=== PATIENT | female | born 1955 | race Caucasian/White ===

== ENCOUNTER 2024-04-23 04:35 | Outpatient (RCR) | payer MEDICARE, MEDICAID, SELFPAY ==
[2024-04-09 10:00] VITALS: BP 120/72; PULSE 62; RESP 16; TEMP 36.6; O2SAT 97
[2024-04-09] MEDS: IRON SUCROSE COMPLEX 300 MG in Normal Saline 250 ML 176.667 MG IVPB (10:09)
[2024-04-09] MEDS: Normal Saline Flush 10 ML SYR IVP (10:10)
[2024-04-09 11:50] VITALS: BP 128/72; PULSE 62; TEMP 36.5; O2SAT 97
[2024-04-16 10:05] VITALS: BP 128/82; PULSE 72; RESP 17; O2SAT 98
[2024-04-16] MEDS: IRON SUCROSE COMPLEX 300 MG in Normal Saline 250 ML 176.667 MG IVPB (10:19)
[2024-04-16] MEDS: Normal Saline Flush 10 ML SYR IVP (10:19)
[2024-04-23] MEDS: Normal Saline Flush 10 ML SYR IVP (10:30)
[2024-04-23] MEDS: IRON SUCROSE COMPLEX 300 MG in Normal Saline 250 ML 176.667 MG IVPB (10:41)
== END 2024-05-04 23:59 | disposition home or self-care (01) ==
LOC: INF 04:35
PROVIDERS: PCP Family Medicine; Visit Provider Nurse Practitioner Family
DX: D50.9 Iron deficiency anemia, unspecified (principal)
CPT/HCPCS: 96365; 96366; J1756

== ENCOUNTER 2024-05-21 02:50 | Outpatient (RCR) | payer MEDICARE, MEDICAID, SELFPAY ==
[2024-05-05 00:03] VITALS: BP 128/82; PULSE 72; RESP 17; TEMP 36.5
[2024-05-21] MEDS: Normal Saline Flush 10 ML SYR IVP (10:34)
[2024-05-21] MEDS: IRON SUCROSE COMPLEX 300 MG in Normal Saline 250 ML 176.667 MG IVPB (10:34)
== END 2024-06-04 23:59 | disposition home or self-care (01) ==
LOC: INF 02:50
PROVIDERS: PCP Family Medicine; Visit Provider Nurse Practitioner Family
DX: D50.9 Iron deficiency anemia, unspecified (principal)
CPT/HCPCS: 96365; 96366; J1756

== ENCOUNTER 2024-07-27 09:45 | Outpatient (RCR) | payer MEDICARE, MEDICAID, SELFPAY ==
--- OUTSIDE RECORDS SUMMARY | 2024-07-13 00:12 | XMS_ITS | Encounter Summary ---
Author Organization [facility] Address [address] [place] [address] Care Team Providers Care Business Planner Name Role Phone Gus Odell MD Primary Care Provider [phone] Encounter Details Date Type Department Care Team (Late st Contact Info) Description 05/14/2024 Lab Requisition [facility] Pathology & Laboratory Medicine - [address] [address] Tom Hebert S, [place] [phone] Encounter for other general examination Social History Tobacco Use Types Packs/Day Years Used Date Smoking Tobacco: Never Assessed Interpersonal Safety Answer Date Record ed Physically Hurt Never 06/06/2020 Verbally Threaten Not on file 06/06/2020 Sex and Gender Information Value Date Recorded Sex Assigned at Not on file Gender Identity Not on file Sexual Orientation Not on file documented as of this encounter Plan of Treatment Not on file documented as of this encounter Procedures Procedure Name Priority Date/Time Associated Diagnosis Comments SURGICAL PATHOLOGY Today 05/14/2024 13 :49 EDT Encounter for other general examination documented in this encounter Results * SURGICAL PATHOLOGY (05/14/2024 13:49 EDT) Note to Patient The following pathology results have been interpreted by your pathologist and may be available to you before your health provider has had the opportunity to review them. Please allow time for your provider to receive these results and explore management options, if applicable. 05/19/2024 15:27 [facility] Final Diagnosis A. GASTROESOPHAGEAL JUNCTION, BIOPSY: - Squamous mucosa with no significant diagnostic abnormalities. B. 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 - See comment. C. COLON, SIGMOID, POLYP, BIOPSY: - Tubular adenoma. 05/19/2024 15:27 [facility] Diagnosis Comment B: RESULTS OF IMMUNOHISTOCHEMICAL STAINING: Retained expression of MLH1, PMS2, MSH2 and MSH6 INTERPRETATION: These results are indicative of normal DNA mismatch repair function within the tumor. This patient most likely does not have Velazquez syndrome. However, it is important to note that 3-10% of Velazquez syndrome patients may reveal retained expression of mismatch repair proteins due to mutation in other genes. Hence these findings should be interpreted in the context of family and clinical history. If results do not match clinicopathologic findings, molecular testing (specifically microsatellite instability by PCR) can be ordered upon obtaining preauthorization or an advanced beneficiary notice. ANTIBODY (CLONE) (BLOCK): RESULT MLH1 (M1, [place]) (block B1): Retained expression in tumor PMS2 (A16-4, [place]) (block B1): Retained expression in tumor MSH2 ([id number], [place]) (block B1): Retained expression in tumor MSH6 (SP93, [place]) (block B1): Retained expression in tumor Internal controls: Adequate NOTE: One or more of the reagents used in immunohistochemical testing in this case may not have been cleared or approved by the U.S. Food and Drug Administration (FDA). The FDA has determined that such clearance or approval is not necessary. These tests are used for clinical purposes. They should not be regarded as investigational or for research. These reagents' performance characteristics have been determined by [facility] and/or by the referring laboratory. The positive and negative controls worked appropriately. This laboratory is certified under the Clinical Laboratory Improvement Amendments of 1988 (CLIA-88) as qualified to perform high complexity clinical laboratory testing. Content Architect slides of this case were reviewed at the gastrointestinal/live r intradepartmental consultation conference. (AZS) 05/19/2024 15:27 [facility] Attestation There was significan t resident/fellow involvement in the diagnostic evaluation of this case. By the signature below, the attending physician certifies that they have personally conducted a gross and/or microscopic examination of the described specimens and rendered or confirmed the above diagnosis. 05/19/2024 15:27 T [facility] at 1527 Clinical History Anemia, EGD hiatal hernia, colo transverse colon mass 05/19/2024 15:27 T [facility] Gross Description A. Received in formalin labelled with proper patient identification (initials P, R) and GE junction biopsy is a 0.5 x 0.2 x 0.2 cm farley irregular soft tissue fragment. Entirely submitted in A1. B. Received in formalin labelled with proper patient identification (initials P, R) and transverse colon polyp are multiple farley irregular soft tissue fragments ranging from minute to 0.4 x 0.3 x 0.3 cm. Entirely submitted in B1. C. Received in formalin labelled with proper patient identification (initials P, R) and sigmoid polyp is a 0.3 x 0.3 x 0.3 cm farley irregular soft tissue fragment. Entirely submitted in C1. DARA DEXTER(ASCP) 05/15/2024 13:20 05/19/2024 15:27 T [facility] Resident/Fell ow: Alexandra Okeefe MD PhD 05/19/2024 15:27 [facility] Performing Lab [facility] 05/19/2024 15:27 [facility] Scanned Images 05/19/2024 15:27 [facility] Tissue POLYP OF COLON / Unknown 05/14/2024 13:49 EDT 05/15/2024 9:30 EDT Tissue specimen (specimen) POLYP OF COLON / Unknown 05/14/2024 13:49 EDT 05/15/2024 9:30 EDT Tissue specimen (specimen) POLYP OF COLON / Unknown 05/14/2024 13:49 EDT 05/15/2024 9:30 EDT Tom Hebert DO PATHOLOGY ORDERABL ES [facility] [address] [place] [address] documented in this encounter Visit Diagnoses Diagnosis Encounter for other general examination documented in this encounter Care Teams Business Planner Relationship Specialty Start Date End Date Gus Odell MD [address] [place] [address],[address] [place] [phone] PCP - General 09/10/15 documented as of this encounter
--- OUTSIDE RECORDS SUMMARY | 2024-07-13 00:12 | XMS_ITS | Encounter Summary ---
Author Organization [facility] Address [address] [place] [address] Care Team Providers Care Social Scientist Name Role Phone Gus Odell MD Primary Care Provider [phone] Encounter Details Date Type Department Care Team (Late st Contact Info) Description 11/18/2019 Lab Requisition [facility] Pathology & Laboratory Medicine - [address] [address] Clint Moscoso MD [address] [place] [phone] Encounter for other general examination Social History Tobacco Use Types Packs/Day Years Used Date Smoking Tobacco: Never Assessed Sex and Gender Information Value Date Recorded Sex Assigned at Not on file Gender Identity Not on file Sexual Orientation Not on file documented as of this encounter Plan of Treatment Not on file documented as of this encounter Procedures Procedure Name Priority Date/Time Associated Diagnosis Comments SURGICAL PATHOLOGY Today 11/17/2019 8:20 EST documented in this encounter Results * SURGICAL PATHOLOGY (11/17/2019 8:20 EST) Final Diagnosis A. COLON, TRANSVERSE, POLYPS, BIOPSY: - Fragments of tubulovillous adenoma(s). - Fragments of tubular adenoma(s). B. COLON, SIGMOID, POLYP, BIOPSY: - Fragments of tubular adenoma. C. RECTUM, POLYP, BIOPSY: - Fragments of tubular adenoma. 11/21/2019 12:24 EST [facility] at 1224 Clinical History History colon polyps, family history colon cancer. Hemorrhoids, diverticulosis, polyps. 11/21/2019 12:24 [facility] Attestation By the signature below, the attending physician certifies that they have personally conducted a gross and/or microscopic examination of the described specimens and rendered or confirmed the above diagnosis. 11/21/2019 12:24 [facility] at 1224 Gross Description A. Received in formalin labelled with proper patient identification (initials (P, R) and transverse colon polyp is a single farley polypoid tissue (1.1 x 0.6 x 0.5 cm). The specimen is bisected and entirely submitted in A1. Also received in the same container are 11 polypoid tissue fragments ranging from (0.1 x 0.1 x 0.1 cm to 0.3 x 0.2 x 0.1 cm). Entirely submitted in A2 through A4. B. Received in formalin labelled with proper patient identification (initials P, R) and sigmoid colon polyp are two farley-white tissues (0.2 x 0.1 x 0.1 cm and 0.4 x 0.1 x 0.1 cm). Entirely submitted in B1. C. Received in formalin labelled with proper patient identification (initials P, R) and rectal polyp are 4 farley-white tissues (0.1 x 0.1 x 0.1 cm to 0.2 x 0.2 x 0.1 cm). Entirely submitted in C1 and C2. MIHRAB ALI 11/19/2019 09:19 11/21/2019 12:24 [facility] Scanned Images 11/21/2019 12:24 [facility] Tissue SPECIMEN FROM RECTUM / Unknown 11/17/2019 8:20 EST 11/19/2019 8:38 EST Tissue specimen (specimen) SIGMOID COLON STRUCTURE / Unknown 11/17/2019 8:20 EST 11/19/2019 8:39 EST Tissue specimen (specimen) SPECIMEN FROM RECTUM / Unknown 11/17/2019 8:20 EST 11/19/2019 8:39 EST Clint Moscoso MD PATHOLOGY ORDER [facility] [address] [place] [address] documented in this encounter Visit Diagnoses Diagnosis Encounter for other general examination documented in this encounter Care Teams Social Scientist Relationship Specialty Start Date End Date Gus Odell MD [address] [place] [address],[address] [place] [phone] PCP - General 09/10/15 documented as of this encounter
--- OUTSIDE RECORDS SUMMARY | 2024-07-13 00:12 | XMS_ITS | Encounter Summary ---
Author Organization [facility] Address [address] [place] [address] Care Team Providers Care Carpenter Maintenance Name Role Phone Gus Odell MD Primary Care Provider [phone] Encounter Details Date Type Department Care Team (Late st Contact Info) Description 05/14/2024 Lab Requisition [facility] Pathology & Laboratory Medicine - [address] [address] Outr Resulting Lab, Provider Social History Tobacco Use Types Packs/Day Years [...] Procedure Name Priority Date/Time Associated Diagnosis Comments CEA Routine 05/14/2024 15:11 EDT documented in this encounter Results * CEA (05/14/2024 15:11 EDT) CEA 3.0 See Note ng/mL 05/15/2024 8:30 EDT [facility] Comment: % Distribution of CEA (ng/mL): ??0.0 - 2.5 in 98.2% of Nonsmokers and 87.3% of Smokers ??2.6 - 5 in 1.8% of Nonsmokers and 8% of Smokers ??5.1 - 10.1 in 4.7% of Smokers NOTE: Serum CEA concentration should not be interpeted as absolute evidence for the presence or absence of malignant disease. ?? Assayed on Siemens ADVIA Centaur XPT using chemiluminescent technology. ??Values obtained by different assay methods cannot be used interchangeably. Blood VENOUS BLOOD / Unknown 05/14/2024 15:11 EDT 05/14/2024 22:18 EDT Provider Outr Resulting Lab CHEMISTRY & BLOOD GAS ORDERABLES [facility] [address] [place] [address] documented in this encounter Visit Diagnoses Not on filedocumented in this encounter Care Teams Carpenter Maintenance Relationship Specialty Start Date End Date Gus Odell MD [address] [place] [address] ,[address] [place] [phone] PCP - General 09/10/15 documented as of this encounter
--- OUTSIDE RECORDS SUMMARY | 2024-07-13 00:12 | XMS_ITS | Encounter Summary ---
Author Organization [facility] Address [address] [place] [address] Care Team Providers Care Senior Lead Developer Name Role Phone Unavailable Primary Care Provider Unavailabl e Encounter Details Date Type Department Care Team (Late st Contact Info) Description 04/23/2007 Results Only [facility] [address] [place] [address] Sabino Hall, CODEY [address] [facility],[address] [place] [address] Social History Tobacco Use Types Packs/Day Years Used Date Smoking Tobacco: Never Assessed Sex and Gender Information Value Date Recorded Sex Assigned at Not on file Gender Identity Not on file Sexual Orientation Not on file documented as of this encounter Plan of Treatment Not on file documented as of this encounter Procedures Procedure Name Priority Date/Time Associated Diagnosis Comments CYTOPATHOLOGY Routine 04/23/2007 0:00 EDT documented in this encounter Results * CYTOPATHOLOGY (04/23/2007 0:00 EDT) Pathology Report: CYTOPATHOLOGY REPORT Reports generated via electronic interface contain original data; however they are lacking the format of the original report. Caution should be taken when reading/interpreti ng unformatted reports. Name: ? ROSITA IVAN ? Accession #: ? [id number] : ? 1955 (Age: 52) ??F ?Collect Date: ? 04/23/2007 Location: ? [facility] ? Receive Date: ? 04/24/2007 Provider: ?SABINO HALL NP Copy to: ? Specimen/Source: ?ThinPrep Pap Test, Vagina, processed on [email or web address] ThinPrep Imaging System, with manual evaluation Last Menstrual Period: ? 1987 Hormonal/Contracep tive Status: ? Premarin Treatment History: ? Hysterectomy: 1987 Other: ? HPVA - HPV testing requested if ASC-US on the current ThinPrep Pap test. ? SPECIMEN ADEQUACY ? Satisfactory for Evaluation - assessment of transformation zone component not applicable ( e.g. atrophy, vaginal sample, hysterectomy) GENERAL CATEGORIZATION ? Negative for Intraepithelial Lesion or Malignancy ? Document reviewed and electronically signed by: ? LEO Peña(ASCP) ? Report Date: ??04/30/2007 13:08 End of Report [facility] 04/23/2007 04/24/2007 Sabino Hall NP PATHOLOGY ORDERABLES [facility] [address] [place] [address] documented in this encounter Visit Diagnoses Not on filedocumented in this encounter
--- OUTSIDE RECORDS SUMMARY | 2024-07-13 00:12 | XMS_ITS | Encounter Summary ---
Author Organization [facility] Address [address] [place] [address] Care Team Providers Care Blasting Clay Miner Name Role Phone Gus Odell MD Primary Care Provider [phone] Encounter Details Date Type Department Care Team (Late st Contact Info) Description 11/17/2020 Lab Requisition [facility] Pathology & Laboratory Medicine - [address] [address] Clint Moscoso MD [address] [place] [phone] Encounter for other general examination Social History [...] Date/Time Associated Diagnosis Comments SURGICAL PATHOLOGY Today 11/17/2020 10 :30 EST documented in this encounter Results * SURGICAL PATHOLOGY (11/17/2020 10:30 EST) Final Diagnosis A. COLON, ASCENDING, POLYP, BIOPSY: - Tubular adenoma. B. COLON, TRANSVERSE, BIOPSY: - Tubular adenoma. C. COLON, TRANSVERSE, POLYP, BIOPSY: - Tubular adenoma. D. COLON, SIGMOID, POLYP, BIOPSY: - Tubular adenoma. 11/18/2020 15:00 [facility] Attestation By the signature below, the attending physician certifies that they have 1) personally conducted a gross and/or microscopic examination of the described specimen(s), and/or personally interpreted the results of laboratory testing of the described specimen(s), and 2) personally rendered or confirmed the above diagnosis. 11/18/2020 15:00 [facility] at 1500 Clinical History History of colon polyps; diverticulosis, colon polyps 11/18/2020 15:00 [facility] Gross Description A. Received in formalin labelled with proper patient identification (initials P, R) and ascending colon polyp are 2 fragments of farley-yellow soft tissue (each averaging 0.3 x 0.2 x 0.2 cm). The specimen is entirely submitted in A1. B. Received in formalin labelled with proper patient identification (initials P, R) and known tubulovillous adenoma at [facility] are 5 fragments of farley-yellow soft tissue (ranging from 0.2 cm to 0.3 cm in greatest dimension). The specimen is entirely submitted in B1. C. Received in formalin labelled with proper patient identification (initials P, R) and transverse colon polyp is a single fragment of farley-white soft tissue (a 0.4 x 0.2 x 0.2 cm). The specimen is entirely submitted in C1. D. Received in formalin labelled with proper patient identification (initials P, R) and sigmoid polyp is a single fragment of farley soft tissue (0.2 x 0.2 x 0.2 cm). The specimen is entirely submitted in D1. DARA BENITEZ(ASCP) 11/18/2020 8:08 11/18/2020 15:00 [facility] Performing Lab [facility] 11/18/2020 15:00 [facility] Scanned Images 11/18/2020 15:00 [facility] Tissue ENTIRE SIGMOID COLON / Unknown 11/17/2020 10:30 EST 11/17/2020 21:41 EST Tissue specimen (specimen) TRANSVERSE COLON STRUCTURE / Unknown 11/17/2020 10:30 EST 11/17/2020 21:41 EST Tissue specimen (specimen) TRANSVERSE COLON STRUCTURE / Unknown 11/17/2020 10:30 EST 11/17/2020 21:41 EST Tissue specimen (specimen) SIGMOID COLON STRUCTURE / Unknown 11/17/2020 10:30 EST 11/17/2020 21:41 EST Clint Moscoso MD PATHOLOGY ORDER [facility] [address] [place] [address] documented in this encounter Visit Diagnoses Diagnosis Encounter for other general examination documented in this encounter Care Teams Blasting Clay Miner Relationship Specialty Start Date End Date Gus Odell MD [address] [place] [address],[address] [place] [phone] PCP - General 09/10/15 documented as of this encounter
--- OUTSIDE RECORDS SUMMARY | 2024-07-13 00:12 | XMS_ITS | Clinical Summary ---
Author Organization [facility] Address [address] [place] [address] Care Team Providers Care Stem Cutter Name Role Phone Gus Odell MD Primary Care Provider [phone] Encounters Date Type Department Care Team Description 05/26/2024 Lab Requisition [facility] [address] [address] Tom Hebert DO Encounter for other general examination 05/14/2024 Lab Requisition [facility] [address] [address] Outr Resulting Lab, Provider 05/14/2024 Lab Requisition [facility] [address] [address] Tom Hebert DO Encounter for other general examination from Last 3 Months Social History Tobacco Use Types Packs/Day Years Used Date Smoking Tobacco: Never Assessed Interpersonal Safety Answer Date Record ed Physically Hurt Never 06/06/2020 Verbally Threaten Not on file 06/06/2020 Sex and Gender Information Value Date Recorded Sex Assigned at Not on file Gender Identity Not on file Sexual Orientation Not on file Plan of Treatment Health Maintenance Due Date Last Done Comments Hepatitis C Screen 1955 RSV Immunization ( o r 60+ Years) (1 - 1-dose 60+ series) 2013 Fall Risk Screening 2018 COVID-19 Vaccine (2022-24 season) 2024 Procedures Procedure Name Priority Date/Time Associated Diagnosis Comments SURGICAL PATHOLOGY Today 05/23/2024 18 :46 EDT Encounter for other general examination CEA Routine 05/14/2024 15:11 EDT SURGICAL PATHOLOGY Today 05/14/2024 13 :49 EDT Encounter for other general examination from Last 3 Months Results * SURGICAL PATHOLOGY (05/23/2024 18:46 EDT) Only the most recent of2 resultswithin the time period is included. Note to Patient The following pathology results have been interpreted by your pathologist and may be available to you before your health provider has had the opportunity to review them. Please allow time for your provider to receive these results and explore management options, if applicable. 05/30/2024 14:03 EDT [facility] Final Diagnosis A. 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 - Tumor extends into pericolonic soft tissue. - Pathologic stage (AJCC 8th ed): pT3, pN1a - All surgical margins are negative for tumor. - Metastatic carcinoma involving one of sixteen lymph nodes (11/20). - See synoptic report. 05/30/2024 14:03 EDT [facility] Diagnosis Comment Immunoperoxidase stains were performed on this case to further characterize the lesion. ANTIBODY(CLONE)(BL OCK):RESULT Keratin AE1-AE3 (AE1-AE3, [employer]) (A23): Positive in cells of interest CD68 (514H12, [employer]) (A23): Negative in cells of interest. Highlights histocytes. NOTE: One or more of the reagents used in immunoperoxidase testing in this case may not have been cleared or approved by the U.S. Food and Drug Administration (FDA). The FDA has determined that such clearance or approval is not necessary. These tests are used for clinical purposes. They should not be regarded as investigational or for research. These reagents' performance characteristics have been determined by [facility] and/or by the referring laboratory. The positive and negative controls worked appropriately. If immunoperoxidase staining has been performed on alcohol fixed cytology specimens, which has not been fully validated, the assays should be interpreted with caution and correlated with clinical data. This laboratory is certified under the Clinical Laboratory Improvement Amendments of 1988 (CLIA-88) as qualified to perform high complexity clinical laboratory testing. 05/30/2024 14:03 [facility] Attestation There was significant resident/fellow involvement in the diagnostic evaluation of this case. By the signature below, the attending physician certifies that they have personally conducted a gross and/or microscopic examination of the described specimens and rendered or confirmed the above diagnosis. 05/30/2024 14:03 [facility] at 1403 Synoptic COLON AND RECTUM: Resection COLON AND RECTUM: RESECTION - All Specimens 8th Edition - Protocol posted: 10/17/2023 SPECIMEN ?? Procedure: ?Right hemicolectomy TUMOR ?? Tumor Site: ?Ascending colon ?? Histologic Type: ?Adenocarcinoma ? Histologic Type Comment: ?Prominent mucinous features and focal signet ring features cell present. ?? Histologic Grade: ?G2, moderately differentiated ?? Tumor Size: ?Greatest dimension (Centimeters): 8.5 cm ?? Tumor Extent: ?Invades through muscularis propria into the pericolonic or perirectal tissue ?? Macroscopic Tumor Perforation: ?Cannot be determined: There is a colon detect that is uninvolved by tumor. Clinical correlation is required to determine whether this represents perforation. ? Lymphatic and / or Vascular Invasion: ?Not identified ?? Perineural Invasion: ?Not identified ?? Tumor Budding Score: ?Low (0-4) ?? Number of Tumor Buds: ?1 per 'hotspot' field ?? Treatment Effect: ?No known presurgical therapy MARGINS ?? Margin Status for Invasive Carcinoma: ?All margins negative for invasive carcinoma ? Closest Margin(s) to Invasive Carcinoma: ?Mesenteric ? Distance from Invasive Carcinoma to Closest Margin: ?Greater than 1 cm ?? Margin Status for Non-Invasive Tumor: ?All margins negative for high-grade dysplasia / intramucosal carcinoma and low-grade dysplasia REGIONAL LYMPH NODES ?? Regional Lymph Node Status: ? : ?Tumor present in regional lymph node(s) ? Number of Lymph Nodes with Tumor: ?1 ? Number of Lymph Nodes Examined: ?16 ?? Tumor Deposits: ?Not identified DISTANT METASTASIS ?? Distant Site(s) Involved: ?Cannot be determined pTNM CLASSIFICATION (AJCC 8th Edition) ?? Reporting of pT, pN, and (when applicable) pM categories is based on information available to the pathologist at the time the report is issued. As per the AJCC (Chapter 1, 8th Ed.) it is the managing physician? s responsibility to establish the final pathologic stage based upon all pertinent information, including but potentially not limited to this pathology report. ?? pT Category: ?pT3 ?? pN Category: ?pN1a ADDITIONAL FINDINGS ?? Additional Findings: ?Adenoma(s) 05/30/2024 14:03 T [facility] Clinical History Ascending colon mass 05/30/2024 14:03 [facility] Gross Description A. Received in formalin labelled with proper patient identification (initials P, R) and right colon is a segment of bowel, received closed, that includes terminal ileum (3.3 cm in length x 2.9 cm in luminal circumference), cecum and ascending colon (27.9 cm in length x ranges from 6.7 to 16.2 cm in luminal circumference), with a moderate amount of attached ragged mesentery, the mesentery overlying the tumor is dark red-brown with adhesions. Adjacent to the tumor on the mesenteric margin there is a defect (1.9 x 0.7 cm). Tumor is in proximity to the detect, but does not grossly involve. Also attached is a small amount of yellow lobulated omentum. There is a exophytic tumor in the ascending colon (8.5 x 8.2 x 3.9 cm). The serosa at the tumor is red-brown and slightly puckered. Sectioning the tumor shows it extends to muscle. The tumor is situated 13.1 cm from the proximal margin, 9.2 cm from the distal margin, 1.1 cm from the mesenteric margin and 9.1 cm from the ileocecal valve. A possible tattoo site is present. Wall thickness averages 0.3 cm adjacent to tumor site. The uninvolved colon mucosa is pink-farley with the usual folds and the average wall thickness is 0.2 cm. Two polypoid projections are seen at 5 cm and 5.4 cm from the ileocecal valve (0.2 x 0.2 x 0.2 cm and 0.3 x 0.3 x 0.2 cm) The mucosa of the terminal ileum is pink-farley and velvety with the usual folds and the average wall thickness is 0.2 cm. The serosa is pink-farley and smooth. The appendix is not present, there is a possible site prior appendectomy. Several mesenteric lymph nodes are identified (0.2 cm to 0.5 cm in greatest dimension). Beam Sealer sections are submitted as follows: INK GUZMAN Blue-serosa over the mass Black-perforation site and overlying adhesions/serosa Red-mesenteric margin overlying tumor BLOCK GUZMAN A1- section adjacent to proximal stapled margin, en face A2- business center representative section of terminal ileum A3- ileocecal valve A4- 2 polypoid projections A5- uninvolved mucosa proximal to tumor A6- A7- tumor to closest serosa A8-A9- tumor to overlying adhesions/serosa A10- tumor to overlying perforation site A11- tumor to closest mesenteric margin, perpendicular A12- A13- business center representative sections of tumor A14- uninvolved mucosa distal to tumor A15-A16- section adjacent to distal stapled margin, en face, bisected A17- 4 possible lymph nodes A18- 1 possible lymph node, bisected next A19- 4 possible lymph nodes A20- 1 possible lymph node, bisected A21- 4 possible lymph node A22- 4 possible lymph node A23- 4 possible lymph nodes A24- 1 lymph node, bisected A25- 1 lymph node, bisected A26- 1 lymph node, bisected A27- 1 lymph node, bisected ARACELI HUTCHISON MD 05/27/2024 15:30 Additional sections of tumor to mesentery (red ink/black ink) are submitted in A28- A30. Perpendicular sections to defect (opposite end inked blue) are submitted in A31-A32. ARACELI HUTCHISON MD 05/29/2024 13:10 05/30/2024 14:03 EDT [facility] Resident/Mirza w: Araceli Hutchison MD [place]com, Alayna, MD 05/30/2024 14:03 EDT [facility] Performing Lab [facility] 14:03 EDT [facility] Scanned Images 05/30/2024 14:03 EDT [facility] Tissue RIGHT COLON STRUCTURE / Unknown 05/23/2024 18:46 EDT 05/26/2024 22:19 EDT Tom Hebert DO PATHOLOGY ORDERABL ES Performing Organization Address City/[facility] Co de Phone Number [facility] [address] [place] [address] * CEA (05/14/2024 15:11 EDT) CEA 3.0 See Note ng/mL 05/15/2024 8:30 EDT [facility] Comment: % Distribution of CEA [...] Resulting Lab CHEMISTRY & BLOOD GAS ORDERABLES Performing Organization Address City/[facility]/ZIP Co de Phone Number [facility] [address] [place] [address] from Last 3 Months Care Teams Stem Cutter Relationship Specialty Start Date End Date Gus Odell MD [address] [place] [address],[address] [place] [phone] PCP - General 09/10/15
--- OUTSIDE RECORDS SUMMARY | 2024-07-13 00:12 | XMS_ITS | Referral Summary ---
Author Organization [facility] Address [address] [place] [address] Care Team Providers Care Concierge Receptionist Name Role Phone Gus Odell MD Primary Care Provider [phone] Encounters Date Type Department Care Team Description 05/26/2024 Lab Requisition [facility] [address] [address] Tom Hebert DO Encounter for other general examination 05/14/2024 Lab Requisition [facility] [address] [address] Outr Resulting Lab, Provider 05/14/2024 Lab Requisition [facility] [address] [address] Tom Hebert DO Encounter for other general [...] Orientation Not on file Plan of Treatment Not on file Procedures Procedure Name Priority Date/Time Associated Diagnosis [...] management options, if applicable. 05/30/2024 14:03 EDT [facility] Final Diagnosis A. COLON, [...] - See synoptic report. 05/30/2024 14:03 EDT [facility] Diagnosis Comment Immunoperoxidase stains [...] performance characteristics have been determined by [facility] and/or by the referring laboratory. The [...] high complexity clinical laboratory testing. 05/30/2024 14:03 [facility] Attestation There was significant resident/fellow involvement in the diagnostic evaluation of this case. By the signature below, the attending physician certifies that they have personally conducted a gross and/or microscopic examination of the described specimens and rendered or confirmed the above diagnosis. 05/30/2024 14:03 [facility] at 1403 Synoptic COLON AND [...] FINDINGS ?? Additional Findings: ?Adenoma(s) 05/30/2024 14:03 [facility] Clinical History Ascending colon mass 05/30/2024 14:03 [facility] Gross Description A. [...] cm to 0.5 cm in greatest dimension). Ribbon Cutter sections are submitted as follows: INK GUZMAN Blue-serosa over the mass Black-perforation site and overlying adhesions/serosa Red-mesenteric margin overlying tumor BLOCK GUZMAN A1- section adjacent to proximal stapled margin, en face A2- account executive sales representative section of terminal ileum A3- ileocecal valve A4- 2 polypoid projections A5- uninvolved mucosa proximal to tumor A6- A7- tumor to closest serosa A8-A9- tumor to overlying adhesions/serosa A10- tumor to overlying perforation site A11- tumor to closest mesenteric margin, perpendicular A12- A13- account executive sales representative sections of tumor A14- uninvolved mucosa [...] HUTCHISON MD 05/29/2024 13:10 05/30/2024 14:03 EDT [facility] Resident/Mirza w: Araceli Hutchison MD Westcom, Alayna, MD 05/30/2024 14:03 EDT [facility] Performing Lab [facility] 14:03 EDT [facility] Scanned Images 05/30/2024 14:03 EDT [facility] Tissue RIGHT COLON STRUCTURE / Unknown 05/23/2024 18:46 EDT 05/26/2024 22:19 EDT Tom Hebert DO PATHOLOGY ORDERABL ES Performing Organization Address [facility]/ZIP Co de Phone Number [facility] [address] [place], [place] [id number] * CEA (05/14/2024 15:11 EDT) CEA 3.0 See Note ng/mL 05/15/2024 8:30 EDT [facility] Comment: % Distribution of [...] Resulting Lab CHEMISTRY & BLOOD GAS ORDERABLES [facility] [address] [place], [place] [phone] from Last 3 Months Care Teams Concierge Receptionist Relationship Specialty Start Date End Date Gus Odell MD [address] [place] [address],[address] [place] [address] PCP - General 09/10/15
--- OUTSIDE RECORDS SUMMARY | 2024-07-13 00:12 | XMS_ITS | Encounter Summary ---
Author Organization [facility] Address [address] [place] [address] Care Team Providers Care Equipment Superintendent Name Role Phone Unavailable Primary Care Provider Unavailabl e Encounter Details Date Type Department Care Team (Latest Contact Info) Description 07/21/2004 10:45 EDT - 07/21/2004 11:59 EDT Hospital Encounter [facility] - Other [address] [place] [id number] Hari Sandoval MD Discharge Disposition: Auto Discharge Social History Tobacco Use Types Packs/Day Years Used Date Smoking Tobacco: Never Assessed Sex and Gender Information Value Date Recorded Sex Assigned at Not on file Gender Identity Not on file Sexual Orientation Not on file documented as of this encounter Discharge Disposition Disposition Code Departure Means Destination Auto Discharge documented in this encounter Plan of Treatment Not on file documented as of this encounter Procedures Procedure Name Priority Date/Time Associated Diagnosis Comments THORACOLUMBAR SPINE 1 VIEW Routine 07/21/2004 10:04 EDT L SPINE 2-3 VIEWS Routine 07/21/2004 10: 04 EDT documented in this encounter Results * THORACOLUMBAR SPINE 1 VIEW (07/21/2004 10:04 EDT) Anatomical Region Laterality Modality Other 07/21/2004 10:0 4 EDT Narrative 07/05/2009 16:29 EDT LBP. R/O DDD. LUMBAR SPINE, AP AND LATERAL FLEXION/EXTENSION; THORACOLUMBAR SPINE LATERAL: The patient is status post spinal fusion and decompression of L4-S1 with bilateral pedicle screws at L4, L5, and S1 posteriorly connected with rods. There is posterior mature bony graft and there is disc graft. There is a sub-millimeter lucency along the left-sided pedicle screw at L4. There is no comparison available. The remainder of the lumbar spine is unremarkable. Evaluation of the thoracolumbar spine demonstrates slight anterior wedging of the T11 vertebra. There is no evidence of spondylolisthesis. dw Procedure Note Collin Henry MD - 07/05/2009 LBP. R/O DDD. LUMBAR SPINE, AP AND LATERAL FLEXION/EXTENSION; THORACOLUMBAR SPINE LATERAL: The patient is status post spinal fusion and decompression of L4-S1 with bilateral pedicle screws at L4, L5, and S1 posteriorly connected with rods. There is posterior mature bony graft and there is disc graft. There is a sub-millimeter lucency along the left-sided pedicle screw at L4. There is no comparison available. The remainder of the lumbar spine is unremarkable. Evaluation of the thoracolumbar spine demonstrates slight anterior wedging of the T11 vertebra. There is no evidence of spondylolisthesis. dw Hari Sandoval MD [facility] ORDERABLES * L SPINE 2-3 VIEWS (07/21/2004 10:04 EDT) Anatomical Region Laterality Modality Other 07/21/2004 10:0 4 EDT Narrative 07/05/2009 16:29 EDT LBP. R/O DDD. Procedure Note Collin Henry MD - 07/05/2009 LBP. R/O DDD. Hari BROOKS DIAGNOSTIC IMAG ING ORDERABLES documented in this encounter Visit Diagnoses Not on filedocumented in this encounter
--- OUTSIDE RECORDS SUMMARY | 2024-07-13 00:12 | XMS_ITS | Encounter Summary ---
Author Organization [facility] Address [address] [place] [address] Care Team Providers Care Copy Center Operator Name Role Phone Gus Odell MD Primary Care Provider [phone] Encounter Details Date Type Department Care Team (Late st Contact Info) Description 05/26/2024 Lab Requisition [facility] Pathology & Laboratory Medicine - [address] [address] Tom Hebert S, [place] [address] Encounter for other general examination Social History [...] :46 EDT Encounter for other general examination documented in this encounter Results * SURGICAL PATHOLOGY (05/23/2024 18:46 EDT) Note to Patient The following pathology results have been interpreted by your pathologist and may be available to you before your health provider has had the opportunity to review them. Please allow time for your provider to receive these results and explore management options, if applicable. 05/30/2024 14:03 [facility] Final Diagnosis A. 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 - Tumor extends into pericolonic soft tissue. - Pathologic stage (AJCC 8th ed): pT3, pN1a - All surgical margins are negative for tumor. - Metastatic carcinoma involving one of sixteen lymph nodes (11/20). - See synoptic report. 05/30/2024 14:03 [facility] Diagnosis Comment Immunoperoxidase stains [...] performance characteristics have been determined by [facility] and/or by the referring laboratory. [...] high complexity clinical laboratory testing. 05/30/2024 14:03 [facility] Attestation There was significant resident/fellow involvement in the diagnostic evaluation of this case. By the signature below, the attending physician certifies that they have personally conducted a gross and/or microscopic examination of the described specimens and rendered or confirmed the above diagnosis. 05/30/2024 14:03 [facility] at 1403 Synoptic COLON [...] ?? Additional Findings: ?Adenoma(s) 05/30/2024 14:03 T [facility] Clinical History Ascending colon mass 05/30/2024 14:03 [facility] Gross Description A. Received [...] cm to 0.5 cm in greatest dimension). Warehouse Team Leader sections are submitted as follows: INK GUZMAN Blue-serosa over the mass Black-perforation site and overlying adhesions/serosa Red-mesenteric margin overlying tumor BLOCK GUZMAN A1- section adjacent to proximal stapled margin, en face A2- ambulatory services representative section of terminal ileum A3- ileocecal valve A4- 2 polypoid projections A5- uninvolved mucosa proximal to tumor A6- A7- tumor to closest serosa A8-A9- tumor to overlying adhesions/serosa A10- tumor to overlying perforation site A11- tumor to closest mesenteric margin, perpendicular A12- A13- ambulatory services representative sections of tumor A14- uninvolved mucosa [...] HUTCHISON MD 05/29/2024 13:10 05/30/2024 14:03 EDT [facility] Resident/Mirza w: Araceli Hutchison MD Westcom, Alayna, MD 05/30/2024 14:03 EDT [facility] Performing Lab [facility] 14:03 EDT [facility] Scanned Images 05/30/2024 14:03 EDT [facility] Tissue RIGHT COLON STRUCTURE / Unknown 05/23/2024 18:46 EDT 05/26/2024 22:19 EDT Tom Hebert DO PATHOLOGY ORDERABL ES [facility] [address] [place] [id number] documented in this encounter Visit Diagnoses Diagnosis Encounter for other general examination documented in this encounter Care Teams Copy Center Operator Relationship Specialty Start Date End Date Gus Odell MD [address] [place] [address],[address] [place] [address] PCP - General 09/10/15 documented as of this encounter
--- OUTSIDE RECORDS SUMMARY | 2024-07-13 00:12 | XMS_ITS | Encounter Summary ---
Author Organization [facility] Address [address] [place] [address] Care Team Providers Care Physicians And Surgeons Name Role Phone Gus Odell MD Primary Care Provider [phone] Encounter Details Date Type Department Care Team (Late st Contact Info) Description 11/10/2020 Lab Requisition [facility] Pathology & Laboratory Medicine - [address] [address] Outr Resulting Lab, Provider Social History Tobacco [...] Procedure Name Priority Date/Time Associated Diagnosis Comments DO NOT ORDER STANDALONE - [facility] COVID TEST Today 11/10/2020 11:52 EST COVID-19 TESTING Routine 11/10/2020 11:5 2 EST documented in this encounter Results * DO NOT ORDER STANDALONE - [facility]OAD COVID TEST (11/10/2020 11:52 EST) COVID-19 rt-PCR Result NEGATIVE Negative 11/12/2020 8:28 EST [facility] Comment: 2019-novel Coronavirus (2019-nCoV) not detected by the qRT-PCR assay. Consider testing for other respiratory viruses or re-collecting for 2019-nCoV testing. Note: Optimum timing for peak viral levels during infections caused by 2019-nCoV have not been determined. Collection of multiple specimens from the same patient may be necessary to detect the virus. Limitations Positive results are indicative of active infection with SARS-CoV-2 but do not rule out bacterial infection or co-infection with other viruses. The agent detected may not be the definite cause of disease. In addition, detection of viral RNA may not indicate the presence of infectious virus or that SARS-CoV-2 is the causative agent for clinical symptoms. Negative results do not preclude SARS-CoV-2 infection and should not be used as the sole basis for patient management decisions. Negative results must be combined with clinical observations, patient history, and epidemiological information. False negative results may also occur if amplification inhibitors are present in the specimen or if inadequate numbers of organisms are present in the specimen. Optimum specimen types and timing for peak viral levels during infections caused by SARS-CoV-2 have not been fully determined. Collection of multiple specimens (types and time points) from the same patient may be necessary to detect the virus. The test was validated for use with upper respiratory specimens obtained via nasopharyngeal or oropharyngeal swabs in VTM, UTM, M4, M5, M6, saline, and MTM media. The performance of this test has not been established for other specimens. Specimens collected using other FDA recommended Specimen Collection Materials listed in the FDA COVID-[employer] communication (January 29, 2020) are processed with the caveat that they were not all validated for use with this test and the result must be interpreted in this context. Furthermore, a false negative results may occur if a specimen is improperly collected, transported or handled. If the virus mutates in the RT-PCR target region, SARS-CoV-2 may not be detected or may be detected less predictably. Inhibitors or other types of interference may produce a false negative result. An interference study evaluating the effect of common cold medications was not performed. This test is not FDA-cleared but its performance characteristics were established by our CLIA-certified, CAP-accredited, high complexity laboratory in accordance with CLIA regulations, [employer] [place] (CAP) guidelines (Jan 22, 2020), and FDA guidance (Jan 03, 2020). This test is only for use under the Food and Drug Administration's Emergency Use Authorization. Swab ENTIRE NASOPHARYNX / Unknown 11/10/2020 11:52 EST 11/10/2020 20:54 EST Provider Outr Resulting Lab MICROBIOLOGY - GENERAL ORDERABLES [facility] [place], [place] * COVID-19 TESTING (11/10/2020 11:52 EST) COVID-19 rt-PCR Result NEGATIVE Negative 11/12/2020 9:40 EST [facility] Comment: 2019-novel Coronavirus (2019-nCoV) not detected by the qRT-PCR assay. Consider testing for other respiratory viruses or re-collecting for 2019-nCoV testing. Note: Optimum timing for peak viral levels during infections caused by 2019-nCoV have not been determined. Collection of multiple specimens from the same patient may be necessary to detect the virus. Limitations Positive results are indicative of active infection with SARS-CoV-2 but do not rule out bacterial infection or co-infection with other viruses. The agent detected may not be the definite cause of disease. In addition, detection of viral RNA may not indicate the presence of infectious virus or that SARS-CoV-2 is the causative agent for clinical symptoms. Negative results do not preclude SARS-CoV-2 infection and should not be used as the sole basis for patient management decisions. Negative results must be combined with clinical observations, patient history, and epidemiological information. False negative results may also occur if amplification inhibitors are present in the specimen or if inadequate numbers of organisms are present in the specimen. Optimum specimen types and timing for peak viral levels during infections caused by SARS-CoV-2 have not been fully determined. Collection of multiple specimens (types and time points) from the same patient may be necessary to detect the virus. The test was validated for use with upper respiratory specimens obtained via nasopharyngeal or oropharyngeal swabs in VTM, UTM, M4, M5, M6, saline, and MTM media. The performance of this test has not been established for other specimens. Specimens collected using other FDA recommended Specimen Collection Materials listed in the FDA COVID-19 [employer] communication (January 29, 2020) are processed with the caveat that they were not all validated for use with this test and the result must be interpreted in this context. Furthermore, a false negative results may occur if a specimen is improperly collected, transported or handled. If the virus mutates in the RT-PCR target region, SARS-CoV-2 may not be detected or may be detected less predictably. Inhibitors or other types of interference may produce a false negative result. An interference study evaluating the effect of common cold medications was not performed. This test is not FDA-cleared but its performance characteristics were established by our CLIA-certified, CAP-accredited, high complexity laboratory in accordance with CLIA regulations, [employer] [place] [employer] (CAP) guidelines (Jan 22, 2020), and FDA guidance (Jan 03, 2020). This test is only for use under the Food and Drug Administration's Emergency Use Authorization. Performing Lab [facility] 11/12/2020 9:40 EST [facility] Swab 11/10/2020 11:5 2 EST 11/10/2020 20:54 EST Provider Outr Resulting Lab MICROBIOLOGY - GENERAL ORDERABLES [facility] [address] [place] [address] [facility] [place], [place] documented in this encounter Visit Diagnoses Not on filedocumented in this encounter Care Teams Physicians And Surgeons Relationship Specialty Start Date End Date Gus Odell MD [address] [place] [address],[address] [place] [id number] PCP - General 09/10/15 documented as of this encounter
--- OUTSIDE RECORDS SUMMARY | 2024-07-13 00:12 | XMS_ITS | Encounter Summary ---
Author Organization [facility] Address [address] [place] [address] Care Team Providers Care Manager Consumer Insights Name Role Phone Gus Odell MD Primary Care Provider [phone] Encounter Details Date Type Department Care Team (Late st Contact Info) Description 09/22/2019 Lab Requisition [facility] Pathology & Laboratory Medicine - [address] [address] Clint Moscoso MD [address] [place] [phone] Encounter for other general examination Social History [...] Date/Time Associated Diagnosis Comments SURGICAL PATHOLOGY Today 09/22/2019 12 :30 EST documented in this encounter Results * SURGICAL PATHOLOGY (09/22/2019 12:30 EST) Final Diagnosis A. 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 - Cholelithiasis. - Negative for malignancy. 09/25/2019 14:57 EST [facility] at 1457 Clinical History Biliary colic 09/25/2019 14:57 EST [facility] Attestation There was significan t resident/fellow involvement in the diagnostic evaluation of this case. By the signature below, the attending physician certifies that they have personally conducted a gross and/or microscopic examination of the described specimens and rendered or confirmed the above diagnosis. 09/25/2019 14:57 [facility] at 1457 Gross Description A. Received in formalin labelled with proper patient identification (initials P, R) and gallbladder is a previously disrupted gallbladder with an attached segment of cystic duct (8.8 x 3.6 x 1.9 cm). A cystic duct lymph node is not present. The serosa is farley-pink and focally hemorrhagic. The mucosa is farley and smooth with a foci this farley-brown and firm (2.9 x 2.0) and the wall is 0.1 cm in thickness. The cystic duct lumen is occluded with choleliths and measures 0.1 to 1.5 cm in diameter. The cystic duct margin is inked blue. There are many firm yellow to farley choleliths (5.5 x 4.5 x 1.0 cm in aggregate). Four surgical device sales representative sections and the en face cystic duct margin are submitted in A1. Additional surgical device sales representative sections are submitted in A2 through A4. Mary Kate Kwok MD 09/23/2019 14:11 Mary Kate Kwok MD 09/24/2019 16:02 09/25/2019 14:57 [facility] Resident/Fell ow: Mary Kate Kwok MD 09/25/2019 14:57 [facility] Scanned Images 09/25/2019 14:57 [facility] Tissue ENTIRE GALLBLADDER / Unknown 09/22/2019 12:30 EST 09/23/2019 9:23 EST Clint Moscoso MD PATHOLOGY ORDER [facility] [address] [place] [address] documented in this encounter Visit Diagnoses Diagnosis Encounter for other general examination documented in this encounter Care Teams Manager Consumer Insights Relationship Specialty Start Date End Date Gus Odell MD [address] [place] [address] ,[address] [place] [id number] PCP - General 09/10/15 documented as of this encounter
[2024-07-13] MEDS: Normal Saline Flush 10 ML SYR IVP (09:35)
[2024-07-27] MEDS: Normal Saline Flush 10 ML SYR IVP (10:20)
== END 2024-08-04 23:59 | disposition home or self-care (01) ==
LOC: INF 09:45
PROVIDERS: PCP Family Medicine; Visit Provider Internal Medicine Hematology & Oncology
DX: Z45.2 Encounter for adjustment and management of vascular access device (principal)
CPT/HCPCS: 96523

== ENCOUNTER 2024-08-24 03:56 | Outpatient (RCR) | payer MEDICARE, MEDICAID, SELFPAY ==
[2024-08-10] MEDS: Normal Saline Flush 10 ML SYR IVP (12:27)
[2024-08-24] MEDS: Normal Saline Flush 10 ML SYR IVP (11:09)
== END 2024-09-04 23:59 | disposition home or self-care (01) ==
LOC: INF 03:56
PROVIDERS: PCP Family Medicine; Visit Provider Internal Medicine Hematology & Oncology
DX: Z45.2 Encounter for adjustment and management of vascular access device (principal)
CPT/HCPCS: 96523

== ENCOUNTER 2024-10-05 00:14 | Outpatient (RCR) | payer MEDICARE, MEDICAID, SELFPAY ==
[2024-09-20] MEDS: Normal Saline Flush 10 ML SYR IVP (13:23)
[2024-10-05 12:36] VITALS: BP 132/63; PULSE 61; RESP 16; TEMP 37; O2SAT 100
== END 2024-10-05 23:59 | disposition home or self-care (01) ==
LOC: INF 00:14
PROVIDERS: PCP Family Medicine; Visit Provider Internal Medicine Hematology & Oncology
DX: Z45.2 Encounter for adjustment and management of vascular access device (principal)
CPT/HCPCS: 96523

== ENCOUNTER 2024-11-01 00:21 | Outpatient (RCR) | payer MEDICARE, MEDICAID, SELFPAY ==
[2024-10-18] MEDS: Normal Saline Flush 10 ML SYR IVP (09:50)
[2024-11-01 13:58] VITALS: BP 145/71; PULSE 66; RESP 18; TEMP 37.1; O2SAT 99
== END 2024-11-04 23:59 | disposition home or self-care (01) ==
LOC: INF 00:21
PROVIDERS: PCP Family Medicine; Visit Provider Internal Medicine Hematology & Oncology
DX: Z45.2 Encounter for adjustment and management of vascular access device (principal)
CPT/HCPCS: 96523

== ENCOUNTER 2024-11-29 14:15 | Outpatient (RCR) | payer MEDICARE, MEDICAID, SELFPAY ==
[2024-11-15 11:30] VITALS: BP 124/73; PULSE 54; RESP 17; TEMP 36.3; O2SAT 100
[2024-11-29] MEDS: Normal Saline Flush 10 ML SYR IVP (14:35)
[2024-11-29 15:56] VITALS: BP 144/73; PULSE 65; RESP 16; TEMP 36.7; O2SAT 100
== END 2024-12-05 23:59 | disposition home or self-care (01) ==
LOC: INF 14:15
PROVIDERS: PCP Family Medicine; Visit Provider Internal Medicine Hematology & Oncology
DX: Z45.2 Encounter for adjustment and management of vascular access device (principal)
CPT/HCPCS: 96523

== ENCOUNTER 2024-12-13 00:14 | Outpatient (RCR) | payer MEDICARE, MEDICAID, SELFPAY ==
[2024-12-13] MEDS: Normal Saline Flush 10 ML SYR IVP (13:54)
== END 2025-01-02 23:59 | disposition home or self-care (01) ==
LOC: INF 00:14
PROVIDERS: PCP Family Medicine; Visit Provider Internal Medicine Hematology & Oncology
DX: Z45.2 Encounter for adjustment and management of vascular access device (principal)
CPT/HCPCS: 96523

== ENCOUNTER 2025-02-23 01:57 | Outpatient (CLI) | payer MEDICARE, MEDICAID, SELFPAY ==
--- NOTE | 2025-02-23 12:55 | DI.RAD_ITS ---
Exam(s) XR FOOT LT COMPLETE EXAM: XR FOOT LT COMPLETE CLINICAL HISTORY: Left foot pain,[id number]. TECHNIQUE: 2D digital imaging was performed of the left foot. Three images were obtained. AP, obli que and lateral views were obtained. COMPARISON: No exams were available for comparison FINDINGS: BONES: No acute fracture is present. No bony destructive lesion is seen. There is a plantar calcaneal spur. There is an enthesophyte at the posterior calcaneus. JOINTS: No dislocation present. There is a hallux valgus deformity. There is narrowing of the 1st MT P joint. SOFT TISSUE: Atherosclerotic calcification is present. There is a hammertoe deformity of the 3rd toe . IMPRESSION: Hallux valgus deformity and hammertoe deformity. DATA REPOSITORY: RADIATION DOSE DELIVERED:
== END 2025-02-23 02:17 ==
LOC: DI 01:57
PROVIDERS: PCP Family Medicine; Visit Provider Podiatrist
DX: M79.672 Pain in left foot (principal); M20.22 Hallux rigidus, left foot; M20.42 Other hammer toe(s) (acquired), left foot; G62.0 Drug-induced polyneuropathy; T45.1X5A Adverse effect of antineoplastic and immunosuppressive drugs, initial encounter; W22.03XA Walked into furniture, initial encounter
CPT/HCPCS: 99214; 73630